=== PATIENT | male | born 1960 | race Caucasian/White ===

== ENCOUNTER 2019-06-06 10:09 | Emergency (ER) | payer OTHER ==
[~2019-06-06] VITALS: Ht 185.4 cm; Wt 111.1 kg
--- NOTE | 2019-06-06 10:25 | EKG ---
[address] [address] Test Date: 2019-06-06 Test Time: 10:23:12 Pat Name: DAYANA JUDGE Department: Room: Gender: M [employer]: : [id number] Requested By: BOY LOVE Order Number: [id number] Reading MD: Measurements Intervals [place] Rate: 88 P: 26 MA: 158 QRS: 29 QRSD: 96 T: 26 QT: 362 QTc: 441 Interpretive Statements SINUS RHYTHM LEFT ATRIAL ABNORMALITY ABNORMAL ECG RI6.01 No previous ECG available for comparison
--- NOTE | 2019-06-06 10:25 | PHYS DOC ---
Past History Past Medical History: High Cholesterol, Hypertension Additional Past Surgical Histo: Wrist surgery, Mastoidectomy Smoking: Non-smoker Alcohol Use: None Drug Use: None Adult General Chief Complaint Chief Complaint: HEARTBURN/GI DISTRESS HPI HPI 58-year-old male presents with report of substernal chest discomfort while sitting at his desk prior to arrival. reports initially thought it might just be indigestion. However patient took his blood pressure and noted it was elevated to 205/110. Patient reports he subsequently started to hear his heart beating in his ears and became short of breath and sweaty. Patient has cardiac risk factors of high blood pressure and high cholesterol. Denies known trauma. Denies leg swelling or calf tenderness. Denies pleuritic pain. Review of Systems Review of Systems Constitutional: Denies fever or chills [] Eyes: Denies change in visual acuity, redness, or eye pain [] HENT: Denies nasal congestion or sore throat [] Respiratory: Denies cough; reports shortness of breath [] Cardiovascular: Reports chest discomfort and palpitations GI: Denies abdominal pain, nausea, vomiting, or diarrhea [] : Denies dysuria or hematuria [] Musculoskeletal: Denies back pain or joint pain [] Integument: Denies rash or skin lesions [] Neurologic: Denies headache, focal weakness or sensory changes [] Complete systems were reviewed and found to be within normal limits, except as documented in this note. Current Medications Current Medications Current Medications Medications (Trade) Dose Ordered Sig/Casey Start Time Stop Time Status Last Admin Dose Admin Aspirin (Toni Aspirin) 325 mg 1X ONCE 06/06/19 10:30 06/06/19 10:31 UNV Famotidine (Pepcid Vial) 20 mg 1X ONCE 06/06/19 10:30 06/06/19 10:31 UNV Multi-Ingredient Mouthwash/Gargle (Gi Cocktail) 20 ml 1X ONCE 06/06/19 10:30 06/06/19 10:31 UNV Sodium Chloride 1,000 ml @ 1,000 mls/hr 1X ONCE 06/06/19 10:30 06/06/19 11:29 UNV Physical Exam Physical Exam Constitutional: Well developed, well nourished, no acute distress, non-toxic appearance. [] HENT: Normocephalic, atraumatic, Eyes: Conjunctiva normal, no discharge. [] Neck: Normal range of motion, no tenderness, supple, no stridor. [] Cardiovascular: Heart rate regular rhythm, no murmur [] Lungs & Thorax: Bilateral breath sounds clear to auscultation [] Abdomen: Soft, no tenderness Skin: Warm, dry, no erythema, no rash. [] Back: No tenderness, no CVA tenderness. [] Extremities: No tenderness, ROM intact, no edema. [] Neurologic: Alert and oriented X 3, no focal deficits noted. [] Psychologic: Affect anxious, judgement normal EKG EKG @1023 NSR at 88bpm, NO ST elevation, QRS 96ms, QT/QTc 362/441ms Radiology/Procedures Radiology/Procedures PROCEDURE: CHEST PA & LATERAL EXAM: Chest, 2 views. HISTORY: Chest pain. COMPARISON: None. FINDINGS: 2 views of the chest are obtained. There is no infiltrate, pleural effusion or pneumothorax. The heart is normal in size. There is linear left basilar atelectasis or scarring. IMPRESSION: No acute pulmonary finding. Electronically signed by: Rhona Nelson MD (06/06/2019 11:48 AM) [facility] Course & Med Decision Making Course & Med Decision Making Pertinent Labs and Imaging studies reviewed. (See chart for details) Patient presents with report of substernal chest pain with associated sweatiness and SOA. Reports he thought it initially started like indigestion and then he became anxious. Reports he has lots of life stressors currently. Patient does have cardiac risk factors including HTN and hypercholesterolemia. EKG stable. Labs obtained and posted to chart. Troponin x 2 negative. GI cocktail and pepcid provided with interval improvement of symptoms. HEART score 3. Patient offered observation admission for further evaluation and treatment. Patient e lected to be discharge home with outpatient follow-up with PCP. Cardiology referral provided. Discussed findings and plan with patient, who acknowledges understanding and agreement. Dragon Disclaimer Dragon Disclaimer This electronic medical record was generated, in whole or in part, using a voice recognition dictation system. Departure Departure: Impression: Primary Impression: Chest pain Disposition: 01 HOME, SELF-CARE Condition: STABLE Referrals: MEMO MONTES DO (PCP) JOSE J LIMA MD Patient Instructions: Chest Pain (Nonspecific), Brjk-ln-Yxam Scripts Famotidine (PEPCID) 20 Mg Tablet 1 TAB PO BID for Gastritis, #20 TAB Prov: BOY LOVE DO 06/06/19 HEART Score for Chest Pain PTs The HEART Score for CP Pts HEART Score for Chest Pain: HEART Score for Chest Pain Response (Comments) Value History Moderately Suspicious 1 ECG Normal 0 Age >45 - < 65 1 Risk Factors 1 or 2 Risk Factors 1 Troponin < Normal Limit 0 Total 3 Risk Factors: Risk Factors: DM, Current or recent (<one month) smoker, HTN, HLP, family history of CAD, obesity. Risk Scores: Score 0 - 3: 2.5% MACE over next 6 weeks - Discharge Home Score 4 - 6: 20.3% MACE over next 6 weeks - Admit for Clinical Observation Score 7 - 10: 72.7% MACE over next 6 weeks - Early Invasive Strategies Problem Qualifiers Primary Impression: Chest pain Chest pain type: unspecified Qualified Codes: R07.9 - Chest pain, unspecified BOY LOVE DO Jun 06, 2019 10:25
[2019-06-06] MEDS ORDERED: ASPIRIN 81 MG TAB.CHEW ONE (10:27)
[2019-06-06] MEDS ORDERED: ASPIRIN 325 MG TABLET PO ONE (10:30)
[2019-06-06] MEDS ORDERED: IV NORMAL SALINE 1,000ML 1,000 ML IV ONE (10:30)
[2019-06-06] MEDS ORDERED: LIDO:MAALOX 1:1 20 ML SINGLE DOSE. PO ONE (10:30)
[2019-06-06] MEDS ORDERED: FAMOTIDINE 20 MG/2 ML VIAL IVP ONE (10:30)
[2019-06-06 10:45] LABS: BASO # 0.1 x10^3/uL (0.0-0.2); BASO % 1 % (0-3); EOS # 0.2 x10^3/uL (0.0-0.7); EOS % 3 % (0-3); HEMATOCRIT 50.8 % (39.0-53.0); HEMOGLOBIN 17.2 g/dL (13.0-17.5); LYMPH # 2.2 x10^3/uL (1.0-4.8); LYMPH % 28 % (24-48); MEAN CORPUSCULAR HEMOGLOBIN 30 pg (25-35); MEAN CORPUSCULAR HGB CONC 34 g/dL (31-37); MEAN CORPUSCULAR VOLUME 88 fL (79-100); MONO # 0.6 x10^3/uL (0.0-1.1); MONO % 8 % (0-9); NEUT # 4.6 x10^3uL (1.8-7.7); NEUT % 60 % (31-73); PLATELET COUNT 284 x10^3/uL (140-400); RED BLOOD COUNT 5.76 x10^6/uL (4.30-5.70); RED CELL DISTRIBUTION WIDTH 13.3 % (11.5-14.5); WHITE BLOOD COUNT 7.7 x10^3/uL (4.0-11.0)
[2019-06-06 11:08] LABS: ALBUMIN 3.9 g/dL (3.4-5.0); ALBUMIN/GLOBULIN RATIO 1.2 (1.0-1.7); CALCIUM 8.7 mg/dL (8.5-10.1); CREATININE 1.1 mg/dL (0.7-1.3); GFR 69.2; MAGNESIUM 2.3 mg/dL (1.8-2.4); POTASSIUM 3.9 mmol/L (3.5-5.1); TOTAL BILIRUBIN 0.4 mg/dL (0.2-1.0); TOTAL PROTEIN 7.1 g/dL (6.4-8.2)
[2019-06-06] MEDS ORDERED: KETOROLAC 15 MG/ML VIAL. IV ONE (11:45)
--- NOTE | 2019-06-06 11:50 | RAD ---
EXAM: Chest, 2 views. HISTORY: Chest pain. COMPARISON: None. FINDINGS: 2 views of the chest are obtained. There is no infiltrate, pleural effusion or pneumothorax. The heart is normal in size. There is linear left basilar atelectasis or scarring. IMPRESSION: No acute pulmonary finding. Electronically signed by: Rhona Nelson MD (06/06/2019 11:48 AM) [place] [id number]
[2019-06-06 12:15] VITALS: BP 137/85
[2019-06-06] MEDS ORDERED: FAMO-63 PO (12:28)
== END 2019-06-06 12:36 | disposition home or self-care (01) ==
LOC: ER 10:09
DX: R07.89 Other chest pain (principal); E78.00 Pure hypercholesterolemia, unspecified; I10 Essential (primary) hypertension
CPT/HCPCS: 36415; 71046; 80053; 82553; 83690; 83735; 83880; 84484; 85025; 85379; 85610; 85730; 93005; 96374; 96375; 99285; J1885; J3490; J7030